=== PATIENT | male | born 1975 | race Caucasian/White ===

== ENCOUNTER → 2024-08-28 08:53 | Outpatient (REF) | payer OTHER, SELFPAY | LOC: HWRAD 08:53 | PROVIDERS: ATTENDING PHYSICIAN Nurse Practitioner Family | DX: R22.9 Localized swelling, mass and lump, unspecified (principal); R10.9 Unspecified abdominal pain | CPT/HCPCS: 76705; 76775 ==

== ENCOUNTER 2024-11-05 13:38 | Emergency (ER) | payer OTHER, SELFPAY ==
[2024-11-05 13:39] VITALS: BP 155/79
[2024-11-05 14:54] VITALS: BP 143/80
[2024-11-05 15:00] VITALS: BP 152/88
[2024-11-05 15:01] VITALS: BMI 27.0
--- NOTE | 2024-11-05 15:04 | ED.GENMED ---
History of Present Illness
General
Chief Complaint: Breathing Problem
Time Seen by Provider: 11/05/24 15:03
History of Present Illness
History of Present Illness:
TIME OF INITIAL ENCOUNTER: 3 PM
HPI: Patient presents with shortness of breath intermittently for the last few weeks but has worsened over the last 3 days. At times he feels that he cannot get a full deep breath. He does not have any chest pain or pressure. He has no swelling
in the legs. He had no diaphoresis. He was able to run 3 miles as he normally does yesterday without any difficulty. He does not think this is anxiety related.
EXAM:
GENERAL: Well appearing in no distress
HEENT: Moist oral mucosa
CARDIOVASCULAR: No murmurs, normal heart rate, regular rhythm, No chest wall tenderness
PULMONARY: No respiratory distress, breath sounds are clear and equal
ABDOMEN: Soft with no peritoneal signs, no tenderness
NEUROLOGIC: Excellent strength all extremities, no coordination deficits
PSYCHIATRIC: Appropriate mental status, normal insight and judgement
EXTREMITIES: Nontender, no edema, moves all extremities equally
SKIN: No rash, no lesions
NUMBER AND COMPLEXITY OF PROBLEMS ADDRESSED AT THE ENCOUNTER
� Chronic conditions affecting care: Borderline cholesterol
� Acute Exacerbation and/or Progression of Chronic Illness: This is an acute problem
� Differential Diagnosis includes: Anxiety, PE, pneumonia, pneumothorax, ACS, heart failure
AMOUNT AND/OR COMPLEXITY OF DATA TO BE REVIEWED AND ANALYZED
� I performed an independent evaluation of and my interpretation is:
EKG: Sinus 56, normal axis, no acute ST abnormality
CT:
X-rays: Chest x-ray shows no acute abnormality
Laboratory Studies: D-dimer less 0.27, troponin less than 0.012, BNP 23, chemistries and CBC unremarkable
Other:
� Review of other/old records: I reviewed records, the patient was here with scrotal edema several years ago
� Clinical information was obtained by an independent historian: None needed
� Prescriptions/Medications Considered but not given:
� Further testing considered but not performed:
RISK OF COMPLICATIONS AND/OR MORBIDITY OR MORTALITY OF PATIENT MANAGEMENT
� Social determinants of health affecting care: Lives at home
� Discussion with other providers:
� Escalation of care including admission/observation vs risk of discharge considered: The patient is well-appearing with normal vital signs other than minimal hypertension upon arrival. He has room air sats are 100% and lungs
are perfectly clear. EKG is normal.
ANY OTHER UPDATES:
5:10 PM: We decided to try a DuoNeb. He thinks he is able to take a deeper breath in now. Sats are 100% on room air. His breath sounds have always sounded clear with excellent air movement. He does admit to marijuana use. Will give prescription
for albuterol.
Past History
Past History
ED Past Medical History: None
ED Past Surgical History: None
Social History
Tobacco: Non-smoker
Alcohol: Occasional
Living: with family
Phy Exam
Physical Exam
Physical Exam:
See HPI
Scores
Heart Failure Risk
Heart Failure Risk Score: Not Applicable
Course
Orders/Labs/Results
Orders:
Orders
11/05/24 13:47
EKG [Electrocardiogram (*1)] Urgent
Reason for Study: Shortness of Breath
EKG- Treatment ONCE
11/05/24 15:04
CXR2 [CR Chest - 2 Views ] Urgent
Comment:
Reason For Exam: shortness of breath
11/05/24 15:14
Complete Blood Count/With Diff Urgent
Comprehensive Metabolic Panel Urgent
D-Dimer Urgent
NT-proBNP Urgent
Troponin I Urgent
11/05/24 16:30
Ipratropium/Albuterol Sulfate [Duoneb] 3 ml INH R NOW STA
Abnormal Lab Results
11/05/24
15:14
MCH 32.4 H pg
(27.0-31.0)
MPV 10.5 H fL
(7.4-10.4)
BUN 22 H mg/dl
(9-20)
11/05/24 15:14
11/05/24 15:14
Vital Signs
Initial and Last Documented VS:
Initial Vital Signs
Temp Pulse Resp BP Pulse Ox
36.6 C 64 16 155/79 99
11/05/24 13:39 11/05/24 13:39 11/05/24 13:39 11/05/24 13:39 11/05/24 13:39
Last Documented Vital Signs
Temp Pulse Resp BP Pulse Ox
36.8 C 47 15 126/80 100
11/05/24 15:05 11/05/24 16:15 11/05/24 16:15 11/05/24 16:00 11/05/24 16:15
*Critical Care Note
Total Time (30-74mins, 75-104mins- exclusive of procedures): Not Applicable
ED Attending Note
-
Portions of this chart may have been created with voice recognition software.� Occasional wrong word or��sound alike� substitutions may have occurred due to the inherent limitations of voice recognition software.
Discharge Plan
Departure
Patient Disposition: Home (Routine Discharge)
Date of Disposition: 11/05/24
Time of Disposition: 17:04
Patient with high blood pressure during this ER visit?: Yes
Discharge Problem:
Shortness of breath
Prescriptions:
New
albuterol sulfate 90 mcg/actuation HFA aerosol inhaler
2 puff inhalation Q6H PRN (Reason: shortness of breath or wheezing) Qty: 8.5 0RF
No Action
PROPECIA
PO DAILY
ciprofloxacin HCl [Cipro] 750 MG tablet
500 mg PO BID Qty: 28 0RF
hydrocodone-acetaminophen 5 MG/500 MG tablet
1 tab PO Q4HPRN PRN (Reason: pain) Qty: 14 0RF
Referrals:
Melinda Tyler CRNP [Family Provider] -
Interventions
Interventions:
*Risk Screen - Suicide Last Done: 11/05/24 15:46
*General Assessment Last Done: 11/05/24 13:39
*Neglect/Abuse Screening Last Done: 11/05/24 15:46
*ED- Fall Risk Assessment Last Done: 11/05/24 15:16
*ED COVID-19 Vaccine History Last Done: 11/05/24 15:46
ED- Cardiac Assessment Last Done: 11/05/24 15:16
ED- Pulmonary Assessment Last Done: 11/05/24 15:16
Discharge Date and Time
Print Language: EQUATORIAL GUINEAN
[2024-11-05 15:05] VITALS: BP 152/88
[2024-11-05 15:29] LABS: % Basophils 0.9 % (0-2); % Eosinophils 4.7 % (0-6); % Lymphocytes 34.7 % (20.5-51.1); % Monocytes 7.8 % (1.7-9.3); % Neutrophils 51.9 % (42.2-75.2); Absolute Basophils 0.1 10^3/uL (0-0.2); Absolute Eosinophils 0.3 10^3/uL (0-0.7); Absolute Lymphocytes 1.9 10^3/uL (1.2-3.4); Absolute Monocytes 0.4 10^3/uL (0.1-0.6); Absolute Neutrophils 2.9 10^3/uL (1.4-6.5); Hematocrit 43.8 % (39.0-52.0); Hemoglobin 15.9 g/dL (13.0-18.0); Mean Corp Hgb Conc. 36.3 g/dL (33.0-37.0); Mean Corpuscular Hgb 32.4 pg (27.0-31.0); Mean Corpuscular Volume 89.4 fL (80.0-94.0); Mean Platelet Volume 10.5 fL (7.4-10.4); Nucleated Red Blood Cells % 0 % (-); Platelet Count 237 10^3/uL (130-400); Red Cell Dist. Width 12.2 % (11.5-14.5); White Blood Cell Count 5.5 10^3/uL (4.8-10.8)
[2024-11-05 15:44] LABS: ALT (SGPT) 33 U/L (0-50); AST (SGOT) 33 U/L (17-59); Alkaline Phosphatase 75 U/L (38-126); Blood Urea Nitrogen 22 mg/dl (9-20); Calcium 9.4 mg/dl (8.4-10.2); Carbon Dioxide 26 mmol/L (22-30); Chloride 107 mmol/L (98-107); Estimated Creatinine Clearance 96 ml/min; Glucose 92 mg/dl (70-99); Potassium 4.4 mmol/L (3.5-5.1); Sodium 141 mmol/L (135-145); Total Bilirubin 0.9 mg/dl (0.2-1.3); Total Protein 7.3 g/dl (6.3-8.2); eGFR > 60.00
[2024-11-05 15:52] LABS: D-Dimer < 0.27 ug/mlFEU (0.00-0.50)
[2024-11-05 15:56] LABS: NT-proBNP 22.6 pg/ml; Troponin I < 0.012 ng/ml
[2024-11-05 16:00] VITALS: BP 126/80
[2024-11-05] MEDS: DUONEB 3 ML INH (16:44)
[2024-11-05 17:00] VITALS: BP 131/67
== END 2024-11-05 17:28 | disposition home or self-care (01) ==
LOC: EMR 13:38
PROVIDERS: Emergency Medicine; EMERGENCY PHYSICIAN Emergency Medicine; FAMILY PHYSICIAN Nurse Practitioner Family
DX: R06.02 Shortness of breath (principal); F12.90 Cannabis use, unspecified, uncomplicated; R03.0 Elevated blood-pressure reading, without diagnosis of hypertension
CPT/HCPCS: 99285; 94640; 71046; 80053; 83880; 84484; 85025; 85379; 93005

== ENCOUNTER → 2024-11-12 10:23 | Outpatient (REF) | payer OTHER, SELFPAY | LOC: RAD 10:23 | PROVIDERS: ATTENDING PHYSICIAN Nurse Practitioner Family | DX: R10.9 Unspecified abdominal pain (principal) | CPT/HCPCS: 76882 ==

== ENCOUNTER → 2025-04-07 07:20 | Outpatient (REF) | payer OTHER, SELFPAY | LOC: HWRCS 07:20 | PROVIDERS: ATTENDING PHYSICIAN Internal Medicine Cardiovascular Disease; FAMILY PHYSICIAN Nurse Practitioner Family | DX: R06.09 Other forms of dyspnea (principal); E78.2 Mixed hyperlipidemia | CPT/HCPCS: 93306 ==

== ENCOUNTER → 2025-04-09 14:50 | Outpatient (REF) | payer OTHER, SELFPAY | LOC: RCS 14:50 | PROVIDERS: ATTENDING PHYSICIAN Internal Medicine Cardiovascular Disease; FAMILY PHYSICIAN Nurse Practitioner Family | DX: R06.09 Other forms of dyspnea (principal); E78.2 Mixed hyperlipidemia | CPT/HCPCS: 93017 ==